=== PATIENT | female | born 1945 | race Native Hawaiian/Other Pacific Islander ===

== ENCOUNTER 2016-10-15 22:22 | Emergency (ER) | payer OTHER ==
[~2016-10-15] VITALS: Ht 160 cm; Wt 106.6 kg
== END 2016-10-15 23:36 | disposition home or self-care (01) ==
LOC: ED 22:22
DX: M17.11 Unilateral primary osteoarthritis, right knee (principal); W18.39XA Other fall on same level, initial encounter; Y92.098 Other place in other non-institutional residence as the place of occurrence of the external cause
CPT/HCPCS: 99282

== ENCOUNTER 2017-08-25 17:54 | Inpatient (IN) | payer OTHER ==
[~2017-08-25] VITALS: Ht 167.6 cm; Wt 111.2 kg
--- NOTE | 2017-08-25 17:25 | NUR ---
PT TRANSFERRED FROM [facility] VIA W/C. PT AGITATED, PT STATES THAT SHE DOES NOT WANT TO STAY HERE, SHE WANTS TO GO BACK TO HER OTHER ROOM. SHE STATES THAT SHE IS NOT GOING TO GET INTO THE MOTHER........ USING NASTY WORDS. PT STATES THAT SHE IS GOING TO [place] THE STAFF, THAT SHE HAS SONS THAT WILL BEAT THE KATE.... OUT OF US. IT HAS EXPLAINED TO PT WHY SHE IS HERE, THAT WE WILL TREAT HER AND SEND HER BACK TO WHERE SHE WAS BEFORE. PT CONT TO ARGUE. PT STATES THAT SHE IS HUNGRY. REPORT RECIEVED FROM [facility] NURSE STATES THAT PT WAS EATING BEFORE SHE WILL BE TRANSFERRED TO [facility]
[~2017-08-25 17:54] MED LIST: ALENDRONATE PO; ASCO500T18 PO; ASPIR-8181 MG PO; CALCIUM + D600 MG PO; CARAFATE1 GM PO; CELEXA40 MG PO; CYAN10009 IM; DICL1GEL2 TOP; DOCU100C10 PO; DOXEPIN HCL50 MG PO; FERROUS SULF325 M1 PO; FURO40TA93 PO; GABA100C2 PO; HIBICLENS4 % EX; HYDR5TAB9 PO; KLOR-CON M2020 MEQ PO; LACTSYP31 PO; LEVO0.1519 PO; LISITAB PO; LORA0.5T17 PO; NEXIUM40 M1 PO; NYSTCRE EX; ONDA4TAB3 PO; POTASSIUM CHLO20 ME1 PO; SEROQUEL50 MG PO; SM IBUPROFEN200 M1 PO; SPIR100T7 PO; SPIR50TA8 PO; SYNTHROID175 MCG PO; VITAMIN D2000 UNIT PO; XANAX XR1 MG PO; XEROFORM; XIFAXAN550 MG PO; ZINC SULFATE220 MG PO; [UNRECOGNIZED DRUG - OTHER] PO
--- NOTE | 2017-08-25 18:20 | NUR ---
PT COMBATIVE. DR TRIVEDI CALLED AND INFORMED OF PTS STATE AND ORDER RECIEVED FOR RESTRAINTS IF NECESSARY.
[2017-08-25 19:00] VITALS: BP 107/64
[2017-08-25 20:00] VITALS: BP 105/70
[2017-08-25 21:00] VITALS: BP 112/72
[2017-08-26] VITALS (11 sets, daily range): BP systolic 83–117; BP diastolic 47–96; TEMP 98.4; Ht 167.6 cm; Wt 111.2 kg
[2017-08-26 07:20] LABS: PLATELET COUNT 130 K/uL (152-353)
[2017-08-26 07:29] LABS: POTASSIUM 2.6 mmol/L (3.6-5.2)
--- NOTE | 2017-08-26 08:00 | NUR ---
UPON ASSESSMENT PATIENT HAS A VERY LARGE AREA ON ABDOMEN SIMILAR TO HERNIA, PATIENT GOING TO CT TODAY TO VIEW ABDOOMEN
--- NOTE | 2017-08-26 10:00 | NUR ---
PATIENT SCREAMS BRING ME SOMETHING TO EAT WHILE NURSES ATTENDS TO OTHER PATIENTS AT THIS TIME. PATIENT YELLS, AND SCREAMS SHE NEEDS FOOD. PATIENT PROVIDED FOOD, FOOD THREW AT WALL. PATIENT YELLING FOR BOILED EGGS.
--- NOTE | 2017-08-26 10:00 | NUR ---
PATIENT TO CT
--- NOTE | 2017-08-26 13:00 | NUR ---
PCT COOKIE SITS AT PATIENTS BED SIDE AND BATHED.
--- NOTE | 2017-08-26 13:30 | NUR ---
PATIENT SCREAMS SHE WILL GET OUT OF BED AND GET HER OWN DAMN FOOD. PATIENT SCREAMS SHE WILL RIP OUT HER CENTRAL LINE AND GO HOME. PATIENT WANTS BOILED EGGS.
--- NOTE | 2017-08-26 19:05 | NUR ---
PATIENT SCREAMS OUT FOR FOOD, SCREAMING "BRING ME SOMETHING TO EAT DAMN IT" PATIENT PROVIDED SNACK
--- NOTE | 2017-08-26 20:00 | NUR ---
PT TORE HER TELEMETRY, BP CUFF AND O2 MONITOR OFF. PT REFUSES TO LET ME GET HER VITALS. NO S/S OF DISTRESS NOTED. WILL CONTINUE TO MONITOR.
--- NOTE | 2017-08-26 21:34 | NUR ---
PT REFUSED TO TAKE HER LACTULOSE. SHE STATED THAT " SHE WAS NOT SHITTING ALL NIGHT" WILL CONTINUE TO MONITOR PT.
--- NOTE | 2017-08-26 23:41 | NUR ---
2330 PT HAD A LARGE LOOSE MUSTARD YELLOW BOWEL MOVEMENT ON HERSELF. BED LINENS AND GOWN HAD TO BE CHANGED. PT WAS WIPED DOWN AND HAD A CLEAN GOWN PUT ON. WILL CONTINUE TO MONITOR PT.
--- NOTE | 2017-08-27 00:04 | NUR ---
0004 PT HAS REMOVED HER LEADS, BP CUFF AND O2 MONITOR. SHE REFUSES TO LET ME PUT THEM BACK ON HER. SHE IS BEING HATEFUL AND YELLING THAT SHE WILL "JUST TAKE THEM BACK OFF". I HAVE LEFT THEM OFF AT THIS TIME.
--- NOTE | 2017-08-27 03:10 | NUR ---
PT YELLING THAT SHE IS HUNGRY. PT SAYS THAT SHE NEEDS SOMETHING TO EAT BEFORE HER STOMACH STARTS HURTING. GAVE PT VANILLA PUDDING AND A SPRITE. WILL CONTINUE TO MONITOR.
[2017-08-27 05:42] LABS: PLATELET COUNT 147 K/uL (152-353)
[2017-08-27 06:55] LABS: POTASSIUM 2.9 mmol/L (3.6-5.2)
[2017-08-27 07:00] VITALS: TEMP 98.8
--- NOTE | 2017-08-27 12:29 | NUR ---
PT INFORMED OF LACTULOSE GIVEN RECTALLY AND AGREED TO PO DOSE IF IT COULD BE GIVEN WITH FOOD. PT VERBALLY AGREED TO PO LACTULOSE. WILL CONTINUE TO MONITOR. NAD NOTED.
[2017-08-27 14:00] VITALS: BP 82/43; TEMP 98.8
[2017-08-27 15:00] VITALS: BP 84/44
[2017-08-27 16:00] VITALS: BP 86/39
--- NOTE | 2017-08-27 16:35 | NUR ---
PT ROLLED TO THE RIGHT SIDE. FEET ELEVATED. PT CONTINUES TO TAKE OFF BP MONITOR AND O2 SAT MONITOR. PT INSTRUCTED NOT TO DO SO. WILL CONTINUE TO MONITOR.
--- NOTE | 2017-08-27 16:45 | NUR ---
DR BRAND IN TO ASSESS PT. NAD NOTED. WILL CONTINUE TO MONITOR.
[2017-08-27 17:00] VITALS: BP 80/58
--- NOTE | 2017-08-27 18:06 | NUR ---
PT HAD BM AND WAS CHANGED WITH TWO PERSON ASSIST. PT LINENS CHANGED AND A BATH GIVEN. NAD NOTED. PT TOLERATED WELL. BED IN LOWEST POSITION WITH SR UP X2.
--- NOTE | 2017-08-27 18:34 | NUR ---
PT CONTINUES TO TAKE OFF TELEMETRY AND BP MONITOR AFTER INSTRUCTED TO DO SO. BP REPLACED ALONG WITH TELEMETRY. PT LOWER EXTRMETIES ELEVATED WITH BED IN LOWEST POSITION. NAD NOTED. WILL CONTINUE TO MONITOR.
[2017-08-27 20:00] VITALS: BP 115/56; TEMP 97.7
[2017-08-28] VITALS (8 sets, daily range): BP systolic 88–121; BP diastolic 44–64; TEMP 97.9–98.7
[2017-08-28 05:29] LABS: PLATELET COUNT 151 K/uL (152-353)
[2017-08-28 05:59] LABS: POTASSIUM 2.9 mmol/L (3.6-5.2)
--- NOTE | 2017-08-28 08:00 | NUR ---
Pt. SCREAMING AND PULLING OFF BP CUFF.
--- NOTE | 2017-08-28 09:00 | NUR ---
Pt. ASK FOR ANOTHER TRAY. Pt. DIDN'T LIKE TRY. Pt. THREW TRAY ON FLOOR
--- NOTE | 2017-08-28 09:37 | NUR ---
08-27-171999 ASSESSMENT COMLETE. PT IS FUSSING ABOUT ANYTHING THAT SHE CAN. PT HAS A VERY LARGE BM, DIARRHEA, YELLOW. PT CLEANED, REPOSITIONED AND ATIVAN 1 MG IV GIVEN FOR AGITATION. NURSE WILL CONTINUE TO MONITOR. CORMIER IS ALSO TO BSD WITH ABOUT 200 CC OF CLOUDY, NETTIE URINE PRESENT.SH
--- NOTE | 2017-08-28 09:45 | NUR ---
0000 PT SLEEPING , EYES CLOSED. AWAKENS EASILY, REFUSES BP TO BE TAKEN, AND GOES BACK TO SLEEP. NO DISTRESS NOTED. SH
--- NOTE | 2017-08-28 09:47 | NUR ---
[phone] PT CONT TO SLEEP WITHOUT DISTRESS NOTED. SH
--- NOTE | 2017-08-28 09:48 | NUR ---
0600 PT SLEEPING, AWAKENS EASILY, NO DISTRESS NOTED. PT HAD ATIVAN 1 MG IV EARLIER, AND HAS CONT TO DO WELL AND SLEEP WELL WITHOUT ACTING OUT / AGITATION. SH
--- NOTE | 2017-08-28 12:00 | NUR ---
Pt. EATING ASKING FOR MORE. SCREAMING
--- NOTE | 2017-08-28 17:00 | NUR ---
Pt. BATH GIVEN AND LINEN CHANGED
--- NOTE | 2017-08-28 20:54 | NUR ---
08/28/171999 BRIEF CHANGED WITH LARGE LOOSE STOOL,TURNED AND REPOSTIONED TOLERATED WELL.CC
--- NOTE | 2017-08-28 20:55 | NUR ---
08/28/172029 DR. CELIS HERE TO SEE PATIENT.CC
--- NOTE | 2017-08-28 22:05 | NUR ---
08/28/172149 BRIEF CHANGED WITH LARGE BM YELLOW IN COLOR.C/O PAIN IN ABDOMEN.CC 08/28/172199 SPOKE WITHN DR. CELIS ABOUT PT HAVING SOME PAIN IN ABDOMEN NEW ORDER RECEIVED.CC
--- NOTE | 2017-08-28 22:05 | NUR ---
08/28/17 2100 RESTING QUEITLY WITH EYES CLOSED NAD NOTED.CC
[2017-08-29] VITALS (9 sets, daily range): BP systolic 109–133; BP diastolic 38–60; TEMP 97.6–98
--- NOTE | 2017-08-29 02:21 | NUR ---
08/29/1799 RESTING WITH EYES CLOSED NAD NOTED.CC 08/29/17219 RESTING WITH EYES CLOSED NAD NOTED RESP EVEN NONLABORED.CC
[2017-08-29 06:09] LABS: PLATELET COUNT 177 K/uL (152-353)
[2017-08-29 06:23] LABS: POTASSIUM 3.5 mmol/L (3.6-5.2)
--- NOTE | 2017-08-29 08:00 | NUR ---
PATIENT RESTING IN BED WITH EYES CLOSED, SNORING SOUNDS NOTED.
--- NOTE | 2017-08-29 11:03 | NUR ---
PATIENT LYING IN BED REFUSING TO WEAR CUSTOMER EXPERIENCE INTERN LEADS AND BLOOD PRESSURE CUFF. PATIENT SCREAMS FOR FOOD CONTANTLY. PATIENT SCREAMING FOR PAIN MEDICATION, INFORMED PATIENT SHE WAS JUST MEDICATED WITH IV DEMEROL. PT SCREAMS FOR JUICE AND WATER.
--- NOTE | 2017-08-29 21:43 | NUR ---
08-29-171999 PT IN BED, HEAD COVERED WITH HER BLANKET. ASSESSMENT PERFORMED AND COMPLETED. TRIPLE LUMEN CATH TO RIGHT CHEST WALL, SHOWS GOOD BLOOD RETURN THEN FLUSHED WITH NS TO KEEP PATENT. LARGE HERNIA, SOFT, TO MID ABDOMEN. CORMIER CATH TO BSD WITH LIGHT YELLOW URINE PRESENT TO BSD. PT HAS LBE, 3 + EDEMA. PT HAS ON NO SKID SOCKS, BUT CONT TO BE BEDBOUND. SIDE RAILS UP. BED IN LOW POSITION. PT HAS NURSE CALL LIGHT IN REACH, SHE IS ALSO VISABLE FROM NURSE STATION. PT DIAPER IS ALSO CLEAN AND DRY AT THIS TIME. SH. 2100 PT MEDICATIONS TAKEN WITHOUT PROBLEMS. PT C/O PAIN ALL OVER AND HER STOMACH HURTING, WANTED PAIN MEDS, PRS 6/10. DEMEROL 12.5 MG GIVEN SLOWLY IN MEDIAL PORT THEN FLUSHED WITH NS . WILL MONITOR PT FOR RELIEF. SH 2130 PT IS QUIET AND EYES CLOSED, RESP. EVEN, UNLABORED. NO DISTRESS NOTED.SH
--- NOTE | 2017-08-29 22:55 | NUR ---
08-29-17 2200 PT HAS INCONTINENT EPISODE OF VERY LOOSE BM,, YELLOW COLORED,, VERY LARGE AMOUNT. CLEANED AND CHANGED PT. SHE IS ABLE TO HELP POSITION HERSELF AND ROLL OVER. REDIAPERED. PT IS ANXIOUS, YELLING AT TIMES FOR HELP, SHE IS COLD OR HELP, BRING ME SOME WATER, WHICH SHE DRINKS. SHE WANTS TOMATO SOUP TONIGHT, EATS 480 CC AND A CARTON OF SKIN MILK. ATIVAN 1 MG IVSP GIVEN FOR ANXIETY. SHE SAYS THAT SHE IS READY TO GO TO SLEEP, WAKE HER UP AT DINNER. SH.
[2017-08-30] VITALS (13 sets, daily range): BP systolic 99–128; BP diastolic 33–60; TEMP 97.6–98.3
--- NOTE | 2017-08-30 05:58 | NUR ---
2245 PT EYES CLOSED, RESPIRATIONS EVEN, UNLABORED. NO DISTRESS NOTED. 08-30-17 0000 PT SLEEPING AT THIS TIME, NO DISTRESS NOTED, RESPIRATIONS EVEN, UNLABORED. 08-30-17 0100 PT HAS A VERY LARGE BM, YELLOW/GOLD COLOR, VERY LOOSE. HEEL COVERER CLEANS UP PT, REDIDAPERS, AND PT IS ABLE TO ASSIST BETTER TONIGHT WITH HELPING NURSE TO REPOSITION HERSELF. SHE DRINKS A CARTON OF MILK AND REFUSES V/S TO BE TAKEN. HEEL COVERER WILL TRY TO OBTAIN V/S AGAIN PRIOR TO SHIFT CHANGE. NO DITRESS NOTED. 08-30-17 0300 PT CONTINUES TOO SLEEP WITH NO DISTRESS NOTED. WILL CONT TO MONITOR. 08-30-17 0545 PT CONTINUES TO SLEEP, NO DISTRESS NOTED. SHE HAS SLEPT WELL AND BEHAVED BETTER TONIGHT WHEN SHE WAS AWAKE. SHE IS VERY [place]. SHE COMMUNICATED WELL TONIGHT WITH NURSE WRITING BACK AND FORTH TO HER. SH NOTED. ROLO.
[2017-08-30 06:48] LABS: PLATELET COUNT 164 K/uL (152-353)
[2017-08-30 07:03] LABS: POTASSIUM 4.5 mmol/L (3.6-5.2)
--- NOTE | 2017-08-30 09:00 | NUR ---
AM MEAL COMPLETE. FACE AND HANDS WIPED. AM MEDS TAKEN WITHOUT COMPLAINT EXCEPT LACTULOSE. PATIENT REFUSED STATES, "I CAN POOP ON MY OWN."
--- NOTE | 2017-08-30 09:55 | NUR ---
C/O ABDOMINAL DISCOMORT. COVERS HER HEAD WITH BLANKET BUT REQUEST THE LIGHT STAYS ON BECAUSE SHE CAN'T STAND BEING IN THE DARK. HEAD OF BED PLACED IN LOW FOWLERS POSITION PER REQUEST.
--- NOTE | 2017-08-30 10:15 | NUR ---
ASSISTED PATIENT TO BEDSIDE COMMODE. WHILE SEATED BED LINENS WERE CHANGED AND SHE WAS GIVEN A BATH. SHE WAS VERY COOPERATIVE AND THANKFUL.
--- NOTE | 2017-08-30 14:03 | NUR ---
WEEPING NOTED TO RIGHT THIGH.
--- NOTE | 2017-08-30 14:08 | NUR ---
ASSISTED PATIENT UP TO BEDSIDE COMMODE. LARGE BOWEL MOVEMENT AT THIS TIME.
--- NOTE | 2017-08-30 15:40 | NUR ---
ASSISTED PATIENT UP TO BEDSIDE COMMADE. LARGE LOOSE BM OBSERVED. GOWN IS WET FROM LOWER EXTREMITY WEEPING.
--- NOTE | 2017-08-30 18:20 | NUR ---
GENIA ECHEVARRIA'D AT THIS TIME PER ELVIA NGUYEN RN. PT TOELRATED WELL.
--- NOTE | 2017-08-30 20:00 | NUR ---
PT YELLING FOR SOMETHING TO EAT. I GAVE PT CRACKERS AND SHE THREW THEM AT ME. SHE SAID THAT SHE DIDNT WANT ANY DAMN CRACKERS. PT IS NOT IN ANY DISTRESS. WILL CONTINUE TO MONITOR.
--- NOTE | 2017-08-30 20:40 | NUR ---
PT REFUSED TO TAKE MEDICATION IF SHE DID NOT HAVE ANY SPRITE. PT SAID THAT SHE WASNT GOING TO DRINK THAT "PISSY WATER". PT WAS TOLD THAT WE DIDNT HAVE ANY SPRITE ON HAND AND THAT WE WOULD HAVE TO GO TO THE KITCHEN TO GET SOME. SHE SAID THAT SHE "DIDNT GIVE A SHIT" PT SAID A FEW MINUETS LATER THAT SHE WOULD TAKE THE MEDICATION BECAUSE SHE WAS SICK ON HER STOMACH. WILL CONTINUE TO MONITOR.
--- NOTE | 2017-08-30 22:00 | NUR ---
PT REFUSED TO LET ME TAKE HER VITALS. PT WAS ASKED NICELY BUT REFUSED. PT NOT IN ANY DISTRESS. WILL CONTINUE TO MONITOR.
[2017-08-31] VITALS (21 sets, daily range): BP systolic 88–156; BP diastolic 33–83; TEMP 97.6–99
--- NOTE | 2017-08-31 01:20 | NUR ---
PT TOOK HER GOWN OFF AND THREW IT AT ME. SHE SAID THAT SHE WAS NOT WEARING THAT GOWN. WHEN I TRIED TO PUT IT BACK ON HER SHE REFUSED TO PUT IT BACK ON. I WALKED AWAY PT STARTED YELLING AT THE "PUBLIC MESSAGE SERVICE SUPERVISOR" WHO WAS OG THAT I TOOK HER GOWN FROM HER AND WOULDNT GIVE HER ANOTHER GOWN. WILL CONTINUE TO MONITOR PT.
[2017-08-31 05:18] LABS: PLATELET COUNT 158 K/uL (152-353)
[2017-08-31 05:53] LABS: POTASSIUM 4.1 mmol/L (3.6-5.2)
--- NOTE | 2017-08-31 05:59 | NUR ---
PT LAYING IN BED ON HER LEFT SIDE RESTING WITH COVERS OVER HER HEAD. PT SHOWS NO S/S OF DISTRESS. WILL CONTINUE TO MONITOR.
--- NOTE | 2017-08-31 06:30 | NUR ---
PT THREW THE CONTENTS OF HER TRAY ACROSS THE ROOM BECAUSE SHE COULD NOT HAVE ANY PAIN MEDICATION.
--- NOTE | 2017-08-31 08:00 | NUR ---
AM ASSESSMENT COMPLETE.
--- NOTE | 2017-08-31 09:00 | NUR ---
PT ASSISTED TO BSC TO VOID, TOLERATED WELL
--- NOTE | 2017-08-31 09:45 | NUR ---
PT INCONT OF URINE, PT CLEANED AND DRYED.
--- NOTE | 2017-08-31 10:00 | NUR ---
PT INCONT OF STOOL. UNABLE TO CHANGE PT AT TIME PT CALLED FOR ASSIST, PT STATED THAT SHE COULD NOT HOLD IT AND HAND TO GO.
--- NOTE | 2017-08-31 11:00 | NUR ---
PT PULLED GOWN OFF, STATES THAT SHE IS WET, PTS THIGHS ARE WEEPING. CHUX PLACED OVER PTS THIGHS TO KEEP GOWN FROM GETTING WET.
--- NOTE | 2017-08-31 12:00 | NUR ---
PT INCONT OF URINE, PT CLEANED AND DRYED
--- NOTE | 2017-08-31 13:00 | NUR ---
PT ASSISTED UP TO BCS, BM AND VOID
--- NOTE | 2017-08-31 13:27 | NUR ---
PT UP TO BSC AT THIS TIME. LOOSE STOOL NOTED. PT BACK TO BED WITH ASSISTANCE.
--- NOTE | 2017-08-31 20:00 | NUR ---
1950 BLOOD TRANFUSION COMPLETED.
[2017-09-01] VITALS (13 sets, daily range): BP systolic 80–140; BP diastolic 34–63; TEMP 98.1–99.5
[2017-09-01 05:16] LABS: PLATELET COUNT 165 K/uL (152-353)
[2017-09-01 05:31] LABS: POTASSIUM 3.9 mmol/L (3.6-5.2)
--- NOTE | 2017-09-01 10:15 | NUR ---
MOSES AT BEDSIDE.
--- NOTE | 2017-09-01 10:30 | NUR ---
PT UP SITTING IN CHAIR. NO S/S OF DISTRESS NOTED. WILL CONTINUE TO MONITOR.
--- NOTE | 2017-09-01 11:16 | NUR ---
PT SAYS THAT HER LEGS ARE ITCHING HER TO . LOTION AND POWDERS APPLIED. WILL CONTINUE TO MONITOR.
--- NOTE | 2017-09-01 13:00 | NUR ---
MOSES AT BEDSIDE.
--- NOTE | 2017-09-01 13:10 | NUR ---
D/C'D CENTRAL LINE. APPLIED PRESSURE TO SITE. NO BLEEDING WAS NOTED.
--- NOTE | 2017-09-01 13:25 | NUR ---
PT DISCHARGED TO U.
[2017-09-27] MEDS ORDERED: NU-IRON 150150 MG PO (01:57)
[2017-09-27] MEDS ORDERED: LACTSYP31 PO (02:09)
[2017-09-27] MEDS ORDERED: XIFAXAN550 MG PO (02:13)
[2017-09-27] MEDS ORDERED: ALPR0.5T24 PO (02:18)
[2017-09-27] MEDS ORDERED: SIMV10TA PO (02:24)
[2017-09-27] MEDS ORDERED: ESOMEPRAZOLE MA40 MG PO (02:27)
== END 2017-09-01 13:25 | disposition other institution (70) | DRG 442 ==
LOC: MED/SURG 17:54 → ICU 17:54
PROVIDERS: Emergency Medicine; ADMIT Family Medicine
PROC: 30253N1 (ICD-10-PCS; principal; 2017-08-31)
DX: K72.00 Acute and subacute hepatic failure without coma (principal); N39.0 Urinary tract infection, site not specified; D64.89 Other specified anemias; E87.6 Hypokalemia; E83.42 Hypomagnesemia; E83.51 Hypocalcemia; E88.09 Other disorders of plasma-protein metabolism, not elsewhere classified; B37.2 Candidiasis of skin and nail; G25.81 Restless legs syndrome; K74.69 Other cirrhosis of liver; F32.89 Other specified depressive episodes; E03.8 Other specified hypothyroidism; B96.20 Unspecified Escherichia coli [E. coli] as the cause of diseases classified elsewhere
CPT/HCPCS: 36430; 36591; 80053; 80202; 81000; 82140; 82272; 82728; 82747; 83540; 83550; 83735; 83880; 84100; 85027; 86850; 86900; 86901; 86922; 87077; 87086; 87088; 87186; 93005; C1768; J0500; J0610; J1630; J1940; J1956; J2060; J2175; J2405; J3370; J3475; J3480; J3490; P9016; P9047

== ENCOUNTER 2017-09-27 13:30 | Observation (INO) | payer OTHER ==
[~2017-09-27] VITALS: Ht 167.6 cm; Wt 101.6 kg
[2017-09-27] VITALS (11 sets, daily range): BP systolic 93–110; BP diastolic 63–88; TEMP 97.5–97.9
[~2017-09-27 13:30] MED LIST changes: +ALPR0.5T24 PO; +ESOMEPRAZOLE MA40 MG PO; +NU-IRON 150150 MG PO; +SIMV10TA PO
[2017-09-28] VITALS (24 sets, daily range): BP systolic 82–131; BP diastolic 47–86; TEMP 97.3–98.7
[2017-09-28] MEDS ORDERED: XANAX XR1 MG PO (10:48)
[2017-09-29] VITALS (14 sets, daily range): BP systolic 87–118; BP diastolic 42–68; TEMP 97–98
[2017-09-29 08:28] LABS: PLATELET COUNT 193 K/uL (152-353)
[2017-09-29 09:17] LABS: POTASSIUM 3.5 mmol/L (3.6-5.2)
[2017-09-29] MEDS ORDERED: LEVO0.1T6 PO (15:57)
[2017-09-29] MEDS ORDERED: TRAM50TA PO (16:02)
[2017-09-29] MEDS ORDERED: BENZONATATE200 MG PO (16:05)
== END 2017-09-29 14:42 | disposition other institution (70) ==
LOC: ICU 13:30
PROVIDERS: ADMIT Specialist
PROC: 05HM33Z Insertion of Infusion Device into Right Internal Jugular Vein, Percutaneous Approach (ICD-10-PCS; principal; 2017-09-27)
PROC: B543ZZA Ultrasonography of Right Jugular Veins, Guidance (ICD-10-PCS; 2017-09-27)
DX: I87.8 Other specified disorders of veins (principal); K72.90 Hepatic failure, unspecified without coma; E83.51 Hypocalcemia; E83.42 Hypomagnesemia; E87.6 Hypokalemia; E72.20 Disorder of urea cycle metabolism, unspecified; E03.8 Other specified hypothyroidism
CPT/HCPCS: 80053; 82140; 85027; 99220; C1768; G0378; G0379; J0610